=== PATIENT | female | born 1950 | race African-American/Black ===

== ENCOUNTER 2018-07-20 16:11 | Observation (INO) | payer BC, MEDICARE ==
[2018-07-20] MEDS ORDERED: NORMAL SALINE 1,000 ML IV ONE (16:57)
[2018-07-20 17:36] LABS: Hematocrit 30.9 % (37.0-47.0); Hemoglobin 9.9 gm/dL (12.5-16.0); Mean Cell Volume 94.5 fl (78-100); Mean Corpuscular Hemoglobin 30.3 pg (27-31); Mean Platelet Volume 9.7 fl (8-12.5); Neutrophil # 7.6 K/mm3 (1.3-6.0); Neutrophil % 86.9 % (42-75.0); Platelet Count 447 K/mm3 (150-450); Red Blood Count 3.27 M/mm3 (4.2-5.4); Red Cell Distribution Width 20.3 % (11.5-14.0); White Blood Count 8.8 K/mm3 (4.0-10.5)
[2018-07-20 18:00] LABS: Anion Gap 13.9 mmol/L (6.8-13.8); BUN/Creatinine Ratio 12.9 (9.0-21.6); Calcium * 8.8 mg/dL (7.9-10.9); Carbon Dioxide 24.3 mmol/L (24-32.6); Potassium 3.2 mmol/L (3.4-4.6)
[2018-07-20 18:02] LABS: Albumin * 2.7 gm/dl (3.4-5.0); Bilirubin, Total 0.5 mg/dL (0.0-1.1); Ca. Corrected For Albumin 9.5 mg/dL (8.4-10.2); Total Protein 6.7 gm/dL (6.2-8.2)
--- NOTE | 2018-07-20 18:44 | ERNOTE ---
Medical Problem HPI - Narrative Date of Service: 07/20/18 - General Chief Complaint: General Assessment Time Seen by Provider: 07/20/18 16:32 Source: patient, family Exam Limitations: no limitations - Immun/Allergies/Home Medications Immunizations: IMMUNIZATION HX Immunizations Up to Date Yes History of Influenza Vaccine Yes Hx Pneumococcal Vaccination No Allergies/Adverse Reactions: Allergies No Known Allergies Allergy (Verified 07/20/18 16:19) Home Medications: HOME MEDICATIONS Aspirin [Aspirin Enteric Coated] 81 mg PO DAILY 01/08/14 [Last Taken 01/08/14 09:00] Simvastatin 10 mg PO HS 01/08/14 [Last Taken 01/07/14 20:00] DULoxetine HCL [Cymbalta] 30 mg PO DAILY 05/30/18 [Last Taken Unknown] amitriptyline 10 mg tablet 10 mg PO HS 07/04/18 [Last Taken Unknown] atenolol 25 mg tablet 25 mg PO BID tab 07/04/18 [Last Taken Unknown] lisinopril 5 mg tablet 5 mg PO DAILY 07/04/18 [Last Taken Unknown] omeprazole 20 mg capsule,delayed release 20 mg PO DAILY 07/04/18 [Last Taken Unknown] hydrocodone 7.5 mg-acetaminophen 325 mg tablet 1 tab PO Q6H 07/20/18 [Last Taken Unknown] - History of Present History Narrative: patient presents from dr shanks office with c/o of weakness, recent hx of perforated bowel, perittonits and duodenal mass, was dismissed and has continued to decline, falliing frequently and profound weakness Timing: constant, getting worse Severity: moderate Modifying Factors - (Improves): Present: other - nothing Modifying Factors - (Worsens): Present: movement Review of Systems - Narrative Narrative: see chief complaint - Review of Systems Constitutional: Present: See HPI, weakness, fatigue, malaise EYE: Present: no symptoms reported ENT: Present: no symptoms reported Respiratory: Present: no symptoms reported Cardiology: Present: no symptoms reported Gastrointestinal/Abdominal: Present: See HPI, nausea Genitourinary: Present: no symptoms reported Musculoskeletal: Present: no symptoms reported Skin: Present: no symptoms reported Neurological: Present: no symptoms reported Endocrine: Present: no symptoms reported Hematologic/Lymphatic: Present: no symptoms reported Psych: Present: no symptoms reported All Other Systems: All systems neg except as marked Medical History (Last Reviewed 07/20/18 @ 16:58 by Marianna Elizalde RN) Pneumoperitoneum (Acute) Onset Date: ~05/30/[address] segment depression (Acute) Onset Date: ~05/30/18 Duodenal ulcer (Acute) Onset Date: ~05/30/18 Duodenal mass (Acute) Onset Date: ~05/30/18 Fatigue (Chronic) Onset Date: ~2012 Depressive disorder (Chronic) Onset Date: ~2015 Hyperlipemia (Chronic) Hypertension (Chronic) Lung cancer (Acute) DDD (degenerative disc disease) (Chronic) hx of radiation treatment Surgical History: Surgical History (Last Reviewed 07/20/18 @ 16:58 by Marianna Elizalde RN) S/P exploratory laparotomy (Acute) Onset Date: ~05/30/18 History of colonoscopy Onset Date: ~2010 1997 hyperplastic polyp. Fabianoely 2001. 2010 divertic ulosis repeat 5 years Hx of appendectomy Hx of heart artery stent Onset Date: ~2007 Hx of neck surgery Hx of tonsillectomy Onset Date: Unknown Hx of tubal ligation Onset Date: ~1988 Family History: Family History (Last Reviewed 07/20/18 @ 16:58 by Marianna Elizalde RN) Father Mother Social History: Preferred Language Guinean Smoking Status Never smoker Abuse History No History of abuse Psych History Hx of Depression Alcohol Use none Drug Use none (Last Updated 07/20/18 @ 17:02 by Sanjana Patel MD) No Social History Section defined Physical Exam - Physical Exam General Appearance: Present: mild distress, anxious, lethargic, cachetic, sleeping/easy to arouse Head Exam: Present: normal inspection, no evidence of injury Eye Exam: Normal inspection: bilateral, PERRL: bilateral, EOMI: bilateral Ears, Nose, Throat: Present: normal ENT inspection, normal pharynx Neck: Present: normal inspection, nontender Respiratory: Present: no respiratory distress, normal breath sounds, no accessory muscle use, chest nontender, lungs clear Cardiovascular/Chest: Present: regular rate, rhythm, no murmur, normal pe ripheral pulses Gastrointestinal/Abdominal: Present: normal bowel sounds, nontender, nondistended, soft, no organomegaly, other - healing surgical incision mid abdomen Back Exam: Present: normal inspection, normal range of motion, no CVA tenderness, no vertebral tenderness Extremity Exam: Present: normal inspection, non-tender, normal range of motion, no edema Neurological Exam: Present: alert, oriented, normal mood/affect, no motor/sensory deficits Skin Exam: Present: other - dehydration Lymphatic Exam: Present: no adenopathy ED Progress - Date and Time Seen: Date and Time: 07/20/18 19:02 patient unchanged, discussed labs and conditiion with family,family expressed wishes to move to hospice following hospital stay also expressedwishes for patient to be dnr, case discussed with dr manda adamson ccepts admission - Results and Orders Patient's Lab Results:: I have reviewed the patient's lab results. - Vital Signs Patient's Vital Signs:: I have reviewed the patient's vital signs. Vital Signs: Vital Signs 07/20/18 16:11 07/20/18 16:37 07/20/18 17:35 Temperature 36.4 C Pulse Rate 67 75 82 Respiratory Rate 14 13 19 Blood Pressure 122/63 126/69 O2 Sat by Pulse Oximetry 07/20/18 17:50 07/20/18 17:59 07/20/18 18:05 Temperature Pulse Rate 89 85 73 Respiratory Rate 18 15 Blood Pressure 119/82 134/77 O2 Sat by Pulse Oximetry 100 07/20/18 18:30 Temperature Pulse Rate 87 Respiratory Rate 16 Blood Pressure 121/77 O2 Sat by Pulse Oximetry 99 - EKG EKG: NSR - X-Ray X-Ray #1 X-Ray: chest - no acute process, abdomen nsbgp - Progress/Reassessment Chief Complaint: General Assessment Progress:: Unchanged - Transfer of Care Expected Disposition: Admit Plan - Plan Plan: to admit to observation Departure Clinical Impression: Dehydration, moderate, Anuria and oliguria - Departure Disposition: Still a patient Condition: Poor Referrals: Sanjana Patel MD [Primary Care Provider] -
[2018-07-20 19:13] LABS: Urine Bilirubin Negative (NEGATIVE); Urine Blood Negative /ul (NEGATIVE); Urine Ketone Negative (NEGATIVE); Urine Nitrite Negative (NEGATIVE); Urine Protein 15 mg/dL (NEGATIVE); Urine Specific Gravity 1.025 SP.GR. (1.005-1.010); Urine Urobilinogen Normal (NORMAL)
[2018-07-20] MEDS ORDERED: NORMAL SALINE 1,000 ML IV PRN (19:29)
[2018-07-20 19:49] LABS: Urine Appearance Clear (CLEAR); Urine Color Yellow
[2018-07-20 19:50] LABS: Urine Bacteria TRACE; Urine RBC 0-5 /hpf (0-5)
[2018-07-20] MEDS ORDERED: POTASSIUM CHLORIDE 20 MEQ TABLET.SA PO ONE (20:02)
[2018-07-20] MEDS ORDERED: ACETAMINOPHEN 500 MG TABLET PO PRN (20:05)
--- NOTE | 2018-07-20 20:30 | HP ---
Chief Complaint - Chief Complaint Date of Service: 07/20/18 Time of Service: 20:18 Chief Complaint: I cant eat or drink, I'm weak History of Present Illness: 68 AA female with PMHx of Perforated bowel, peritonitis, Duodenal cancer was brought to the ER by her son due to anorexia and inability to tolerate fluids for the past few days. Px is emaciated and cachetic from advanced GI cancer and has abdominal pain. She was found to be marked dehydrated in ER and has sissy oliguria due to fluid deficit. Px was started on IV hydration while in ER. Medical History (Last Reviewed 07/20/18 @ 16:58 by Marianna Elizalde RN) Pneumoperitoneum (Acute) Onset Date: ~05/30/[address] segment depression (Acute) Onset Date: ~05/30/18 Duodenal ulcer (Acute) Onset Date: ~05/30/18 Duodenal mass (Acute) Onset Date: ~05/30/18 Fatigue (Chronic) Onset Date: ~2012 Depressive disorder (Chronic) Onset Date: ~2015 Hyperlipemia (Chronic) Hypertension (Chronic) Lung cancer (Acute) DDD (degenerative disc disease) (Chronic) hx of radiation treatment Surgical History: Surgical History (Last Reviewed 07/20/18 @ 16:58 by Marianna Elizalde RN) S/P exploratory laparotomy (Acute) Onset Date: ~05/30/18 History of colonoscopy Onset Date: ~2010 1997 hyperplastic polyp. Fabianoely 2001. 2010 divertic ulosis repeat 5 years Hx of appendectomy Hx of heart artery stent Onset Date: ~2007 Hx of neck surgery Hx of tonsillectomy Onset Date: Unknown Hx of tubal ligation Onset Date: ~1988 Family History: Family History (Last Reviewed 07/20/18 @ 16:58 by Marianna Elizalde RN) Father Mother Social History: Preferred Language [place] Smoking Status Never smoker Abuse History No History of abuse Psych History Hx of Depression Alcohol Use none Drug Use none (Last Updated 07/20/18 @ 17:02 by Sanjana Patel MD) No Social History Section defined Peds Patient Hx - Developmental: No Pertinent Hx Peds Patient Hx - Medical: No Pertinent Hx Peds Patient Hx - Cardiac/Respiratory: No Pertinent Hx Peds Patient Hx - Surgical: No Surgical History Patient History - Cancer: Lung, Other - Duodenal cancer Review Of Systems (GEN) - Review of Systems Generalized/Overall Review: Present: Malaise, Weight loss EENTM: Present: No Symptoms Reported Respiratory: Present: No Symptoms Reported Abdominal: Present: Abdominal Pain Genitourinary: Present: Oliguria Musculoskeletal: Present: No Symptoms Reported Neurological: Present: Depressed, Emotional Problems Skin: Present: No Symptoms Reported Endocrine: Present: No Symptoms Reported Misc: All systems neg except as marked Immunizations: IMMUNIZATION HX Immunizations Up to Date Yes History of Influenza Vaccine Yes Hx Pneumococcal Vaccination No Allergies/Adverse Reactions: Allergies Allergy/AdvReac Type Severity Reaction Status Date / Time No Known Allergies Allergy Verified 07/20/18 16:19 Home Medications: HOME MEDICATIONS Aspirin [Aspirin Enteric Coated] 81 mg PO DAILY 01/08/14 [Last Taken 01/08/14 09:00] Simvastatin 10 mg PO HS 01/08/14 [Last Taken 01/07/14 20:00] DULoxetine HCL [Cymbalta] 30 mg PO DAILY 05/30/18 [Last Taken Unknown] amitriptyline 10 mg tablet 10 mg PO HS 07/04/18 [Last Taken Unknown] atenolol 25 mg tablet 25 mg PO BID tab 07/04/18 [Last Taken Unknown] hydrocodone 7.5 mg-acetaminophen 325 mg tablet 1 tab PO Q6H 07/20/18 [Last Taken Unknown] Exam - Exam Vital Signs: Vital Signs - Last Taken Temp 36.4 C 07/20/18 16:11 Pulse 86 07/20/18 19:00 Resp 16 07/20/18 19:00 BP 139/63 07/20/18 19:00 Pulse Ox 99 07/20/18 19:00 Constitutional: Present: Alert, Oriented x3, Cooperative, No distress, Elderly, Thin and frail ENT Exam: Present: normal ENT inspection, hearing grossly normal, pharynx normal, TMs normal Eye Exam: bilateral eye: normal inspection, PERRL, EOMI Neck: Present: non-tender, full range of motion, supple, normal inspection, trachea midline Back Exam: Present: normal inspection, no CVA tenderness, no vertebral tenderness Breasts: Present: Exam deferred Respiratory: Present: chest non-tender, lungs clear, normal breath sounds, no respiratory distress, no accessory muscle use Cardiovascular/Chest: Present: normal peripheral pulses, regular rate, rhythm, no chest tenderness, no edema, no gallop, no JVD, no murmur Peripheral Pulses: carotid (R): 3+, carotid (L): 3+, femoral (R): 3+, femoral (L): 3+, dorsalis-pedis (R): 3+, dorsalis-pedis (L): 3+, radial (R): 3+, radial (L): 3+ Abdomen: Present: hypoactive /Rectal: Present: Exam deferred Extremity: Present: normal range of motion, non-tender, normal inspection, no pedal edema, no calf tenderness, slow capillary refill Skin Exam: Present: normal color, warm/dry, no cyanosis Lymphatic: Present: no adenopathy Neurologic: Present: fitting room checker II-XII nml as tested, depressed affect Appearance: Present: appropriate insight, disheveled Eye contact: Present: cooperative, good eye contact, normal speech Thoughts: Present: normal thought pattern Diagnostic Studies: Abnormal Lab Results 07/20/18 07/20/18 07/20/18 Range/Units 17:30 17:30 17:59 RBC 3.27 L (4.2-5.4) M/mm3 Hgb 9.9 L (12.5-16.0) gm/dL Hct 30.9 L (37.0-47.0) % RDW 20.3 H (11.5-14.0) % Immature Gran % (Auto) 0.50 H (0.001-0.429) % Immature Gran # (Auto) 0.04 H (0.000-0.0310) K/mm3 Neutrophils % 86.9 H (42-75.0) % Lymphocytes % 9.1 L (20-51) % Neutrophils # 7.6 H (1.3-6.0) K/mm3 Lymphocytes # 0.80 L (1.5-3.5) k/mm3 Sodium 143 H (132-142) mmol/L Plasma Sodium 143 H (130-142) mmol/L Potassium 3.2 L (3.4-4.6) mmol/L Chloride 108 H (97-106) mmol/L Anion Gap 13.9 H (6.8-13.8) mmol/L Creatinine 1.55 H (0.4-1.4) mg/dL Est GFR (Non-Af Amer) 43 L (60-130) mL/min Random Glucose 117 H D (70-110) mg/dL Alkaline Phosphatase 206 H (50-170) U/L Albumin 2.7 L (3.4-5.0) gm/dl Urine Protein (NEGATIVE) mg/dL Urine WBC (0-5) /hpf Stool Occult Blood Positive H 07/20/18 Range/Units 19:00 RBC (4.2-5.4) M/mm3 Hgb (12.5-16.0) gm/dL Hct (37.0-47.0) % RDW (11.5-14.0) % Immature Gran % (Auto) (0.001-0.429) % Immature Gran # (Auto) (0.000-0.0310) K/mm3 Neutrophils % (42-75.0) % Lymphocytes % (20-51) % Neutrophils # (1.3-6.0) K/mm3 Lymphocytes # (1.5-3.5) k/mm3 Sodium (132-142) mmol/L Plasma Sodium (130-142) mmol/L Potassium (3.4-4.6) mmol/L Chloride (97-106) mmol/L Anion Gap (6.8-13.8) mmol/L Creatinine (0.4-1.4) mg/dL Est GFR (Non-Af Amer) (60-130) mL/min Random Glucose (70-110) mg/dL Alkaline Phosphatase (50-170) U/L Albumin (3.4-5.0) gm/dl Urine Protein 15 H (NEGATIVE) mg/dL Urine WBC 5-10 H (0-5) /hpf Stool Occult Blood Laboratory Results WBC 8.8 K/mm3 (4.0-10.5) 07/20/18 17:30 RBC 3.27 M/mm3 (4.2-5.4) L 07/20/18 17:30 Hgb 9.9 gm/dL (12.5-16.0) L 07/20/18 17:30 Hct 30.9 % (37.0-47.0) L 07/20/18 17:30 MCV 94.5 fl (78-100) 07/20/18 17:30 MCH 30.3 pg (27-31) 07/20/18 17:30 MCHC 32.0 g/dl (32-36) 07/20/18 17:30 RDW 20.3 % (11.5-14.0) H 07/20/18 17:30 Plt Count 447 K/mm3 (150-450) 07/20/18 17:30 MPV 9.7 fl (8-12.5) 07/20/18 17:30 Immature Gran % (Auto) 0.50 % (0.001-0.429) H 07/20/18 17:30 Immature Gran # (Auto) 0.04 K/mm3 (0.000-0.0310) H 07/20/18 17:30 Neutrophils % 86.9 % (42-75.0) H 07/20/18 17:30 Lymphocytes % 9.1 % (20-51) L 07/20/18 17:30 Monocytes % 3.2 % (0.0-9) 07/20/18 17:30 Eosinophils % 0.2 % (0.0-3.0) 07/20/18 17: Basophils % 0.1 % (0.0-1.0) 07/20/18 17:30 Nucleated RBC % 0.0 k/mm3 (0-1) 07/20/18 17:30 Neutrophils # 7.6 K/mm3 (1.3-6.0) H 07/20/18 17:30 Lymphocytes # 0.80 k/mm3 (1.5-3.5) L 07/20/18 17:30 Monocytes # 0.3 k/mm3 (0.0-1.0) 07/20/18 17:30 Eosinophils # 0.0 k/mm3 (0.0-0.7) 07/20/18 17:30 Absolute Basophils 0.0 k/mm3 (0.0-0.1) 07/20/18 17:30 Sodium 143 mmol/L (132-142) H 07/20/18 17:30 Plasma Sodium 143 mmol/L (130-142) H 07/20/18 17:30 Potassium 3.2 mmol/L (3.4-4.6) L 07/20/18 17:30 Chloride 108 mmol/L (97-106) H 07/20/18 17:30 Carbon Dioxide 24.3 mmol/L (24-32.6) 07/20/18 17:30 Anion Gap 13.9 mmol/L (6.8-13.8) H 07/20/18 17:30 BUN 20 mg/dL (3-23) 07/20/18 17:30 Creatinine 1.55 mg/dL (0.4-1.4) H 07/20/18 17:30 Est GFR (Non-Af Amer) 43 mL/min (60-130) L 07/20/18 17:30 BUN/Creatinine Ratio 12.9 (9.0-21.6) 07/20/18 17:30 Random Glucose 117 mg/dL (70-110) H D 07/20/18 17:30 Calcium 8.8 mg/dL (7.9-10.9) 07/20/18 17:30 Calcium Adj for Albumin 9.5 mg/dL (8.4-10.2) 07/20/18 17:30 Total Bilirubin 0.5 mg/dL (0.0-1.1) 07/20/18 17:30 AST 30 U/L (0-48) 07/20/18 17:30 ALT 26 U/L (19-67) 07/20/18 17:30 Alkaline Phosphatase 206 U/L (50-170) H 07/20/18 17:30 Total Protein 6.7 gm/dL (6.2-8.2) 07/20/18 17:30 Albumin 2.7 gm/dl (3.4-5.0) L 07/20/18 17:30 Amylase 78 U/L (25-115) 07/20/18 17:30 Lipase 238 U/L (73-393) 07/20/18 17:30 Urine Color Yellow 07/20/18 19:00 Urine Appearance Clear (CLEAR) 07/20/18 19:00 Urine pH 6.0 pH (5.0-7.0) 07/20/18 19:00 Ur Specific [place] 1.025 SP.GR. (1.005-1.010) 07/20/18 19:00 Urine Protein 15 mg/dL (NEGATIVE) H 07/20/18 19:00 Urine Glucose (UA) Negative mg/dL (NEGATIVE) 07/20/18 19:00 Urine Ketones Negative mg/dL (NEGATIVE) 07/20/18 19:00 Urine Blood Negative /ul (NEGATIVE) 07/20/18 19:00 Urine Nitrate Negative (NEGATIVE) 07/20/18 19:00 Urine Bilirubin Negative mg/dl (NEGATIVE) 07/20/18 19:00 Prot Sulfosalicylic Acd QNS 07/20/18 19:00 Urine Urobilinogen Normal EU/dl (NORMAL) 07/20/18 19:00 Ur Leukocyte Esterase Negative /ul (NEGATIVE) 07/20/18 19:00 Urine RBC 0-5 /hpf (0-5) 07/20/18 19:00 Urine WBC 5-10 /hpf (0-5) H 07/20/18 19:00 Ur Epithelial Cells 0-5 /hpf (0-5) 07/20/18 19:00 Urine Bacteria Trace (NONE) 07/20/18 19:00 Urine Culture Comments Culture to follow 07/20/18 19:00 Stool Occult Blood Positive H 07/20/18 17:59 Assessment/Plan - Narrative Narrative: Plan was admitted to outpx observation for IV hydration and diuresis monitoring. Hospice care was discussed with her son and DNR status was establised per px's wishes. 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
[2018-07-20] MEDS ORDERED: AMITRIPTYLINE HCL 10 MG TABLET PO SCH (21:00)
[2018-07-20] MEDS ORDERED: SIMVASTATIN 10 MG TABLET PO SCH (21:00)
[2018-07-20] MEDS ORDERED: HYDROcodone/ACETAMINOPHEN 1 EACH TABLET PO PRN ×2 (22:43→23:15)
[2018-07-20] MEDS ORDERED: ATENOLOL 50 MG TABLET ONE (23:38)
[2018-07-20] MEDS ORDERED: POTASSIUM CHLORIDE 10 MEQ TABLET.SA ONE (23:39)
[2018-07-20] MEDS: ATENOLOL 25 MG TABLET PO SCH (23:50)
[2018-07-21 06:20] LABS: Hematocrit 25.4 % (37.0-47.0); Mean Cell Volume 96.2 fl (78-100); Mean Corpuscular Hemoglobin 29.9 pg (27-31); Mean Corpuscular Hgb Conc 31.1 g/dl (32-36); Mean Platelet Volume 9.8 fl (8-12.5); Neutrophil # 6.4 K/mm3 (1.3-6.0); Neutrophil % 78.7 % (42-75.0); Platelet Count 366 K/mm3 (150-450); Red Blood Count 2.64 M/mm3 (4.2-5.4); Red Cell Distribution Width 20.4 % (11.5-14.0); White Blood Count 8.1 K/mm3 (4.0-10.5)
[2018-07-21 06:58] LABS: Hemoglobin 7.9 gm/dL (12.5-16.0)
[2018-07-21 08:32] LABS: Albumin * 2.2 gm/dl (3.4-5.0); Anion Gap 14.2 mmol/L (6.8-13.8); BUN/Creatinine Ratio 13.1 (9.0-21.6); Bilirubin, Total 0.3 mg/dL (0.0-1.1); Ca. Corrected For Albumin 8.9 mg/dL (8.4-10.2); Calcium * 7.8 mg/dL (7.9-10.9); Potassium 3.2 mmol/L (3.4-4.6); Total Protein 5.8 gm/dL (6.2-8.2)
[2018-07-21] MEDS ORDERED: LISINOPRIL 5 MG TABLET PO SCH (09:00)
[2018-07-21] MEDS ORDERED: PANTOPRAZOLE SODIUM 20 MG TABLET.DR PO SCH (09:00)
[2018-07-21] MEDS ORDERED: DULoxetine HCL 30 MG CAPSULE.SA PO SCH (09:00)
[2018-07-21] MEDS ORDERED: ASPIRIN 81 MG TABLET.DR PO SCH (09:00)
[2018-07-21] MEDS: ATENOLOL 25 MG TABLET PO SCH (09:38)
[2018-07-21] MEDS ORDERED: POTASSIUM CHLORIDE 20 MEQ TABLET.SA PO ONE (13:48)
--- NOTE | 2018-07-21 14:10 | DS ---
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 She arrived extremely weak, lethargic, and oliguric. IV hydration was started in ER and patient was admitted to outpatient observation for continued IV hydration. Kiera's family was informed of her poor prognosis and they agreed to hospice services in her home. Kiera was evaluated at beside this morning and was found to be more alert and awake, and she reported feeling stronger. With encouragement from her sister, she ate some pudding and drank some juice. Hospice care at home was agreed upon and is being arranged by case management. Procedures Performed: none Results and Findings: Pending Mircobiology Results 07/20/18 19:00 Urine,Voided Urine Culture - Preliminary No Growth Lab Pending Results 07/20/18 17:30: WBC 8.8, RBC 3.27 L, Hgb 9.9 L, Hct 30.9 L, MCV 94.5, MCH 30.3, MCHC 32.0, RDW 20.3 H, Plt Count 447, MPV 9.7, Immature Gran % (Auto) 0.50 H, Immature Gran # (Auto) 0.04 H, Neutrophils % 86.9 H, Lymphocytes % 9.1 L, Monocytes % 3.2, Eosinophils % 0.2, Basophils % 0.1, Nucleated RBC % 0.0, Neutrophils # 7.6 H, Lymphocytes # 0.80 L, Monocytes # 0.3, Eosinophils # 0.0, Absolute Basophils 0.0 07/20/18 17:30: Sodium 143 H, Plasma Sodium 143 H, Potassium 3.2 L, Chloride 108 H, Carbon Dioxide 24.3, Anion Gap 13.9 H, BUN 20, Creatinine 1.55 H, Est GFR (Non-Af Amer) 43 L, BUN/Creatinine Ratio 12.9, Random Glucose 117 H D, Calcium 8.8, Calcium Adj for Albumin 9.5, Total Bilirubin 0.5, AST 30, ALT 26, Alkaline Phosphatase 206 H, Total Protein 6.7, Albumin 2.7 L, Amylase 78, Lipase 238 07/20/18 17:59: Stool Occult Blood Positive H 07/20/18 19:00: Urine Color Yellow, Urine Appearance Clear, Urine pH 6.0, Ur Specific [place] 1.025, Urine Protein 15 H, Urine Glucose (UA) Negative, Urine Ketones Negative, Urine Blood Negative, Urine Nitrate Negative, Urine Bilirubin Negative, Prot Sulfosalicylic Acd QNS, Urine Urobilinogen Normal, Ur Leukocyte Esterase Negative, Urine RBC 0-5, Urine WBC 5-10 H, Ur Epithelial Cells 0-5, Urine Bacteria Trace, Urine Culture Comments Culture to follow 07/21/18 06:00: WBC 8.1, RBC 2.64 L, Hgb 7.9 L* D, Hct 25.4 L, MCV 96.2, MCH 29.9, MCHC 31.1 L, RDW 20.4 H, Plt Count 366, MPV 9.8, Immature Gran % (Auto) 0.40, Immature Gran # (Auto) 0.03, Neutrophils % 78.7 H, Lymphocytes % 14.2 L, Monocytes % 5.9, Eosinophils % 0.7, Basophils % 0.1, Nucleated RBC % 0.0, Neutrophils # 6.4 H, Lymphocytes # 1.15 L, Monocytes # 0.5, Eosinophils # 0.1, Absolute Basophils 0.0 07/21/18 06:00: Sodium 144 H, Plasma Sodium 144 H, Potassium 3.2 L, Chloride 113 H, Carbon Dioxide 20.0 L, Anion Gap 14.2 H, BUN 18, Creatinine 1.37, Est GFR (Non-Af Amer) 49 L, BUN/Creatinine Ratio 13.1, Random Glucose 95, Calcium 7.8 L, Calcium Adj for Albumin 8.9, Total Bilirubin 0.3, AST 27, ALT 21, Alkaline Phosphatase 172 H, Total Protein 5.8 L, Albumin 2.2 L Discharge Location: Home Disposition: Home self-care Condition: Poor Face to Face Encounter completed per [facility] Guidelines: No Discharge Activity: Activity as tolerated Discharge Diet: General/regular food Referrals: Sanjana Patel MD [Primary Care Provider] - Complete Home Medications List: Complete Home Medication List: Aspirin [Aspirin Enteric Coated] 81 mg PO QAM 01/08/14 Simvastatin 10 mg PO 01/08/14 DULoxetine HCL [Cymbalta] 30 mg PO QAM 05/30/18 amitriptyline 10 mg tablet 10 mg PO HS 07/04/18 atenolol 25 mg tablet 25 mg PO BID tab 07/04/18 hydrocodone 7.5 mg-acetaminophen 325 mg tablet 1 tab PO Q6H 07/20/18 Acetaminophen [Tylenol] 1,000 mg PO Q6H PRN tablet 07/21/18 Amitriptyline HCl [Elavil] 10 mg PO HS tablet 07/21/18 Lisinopril [Zestril] 5 mg PO DAILY tablet 07/21/18
[2018-07-21 19:36] VITALS: BP 157/97
== END 2018-07-21 18:55 | disposition home or self-care (01) ==
LOC: ER 16:11 → MS 16:11
PROVIDERS: ADMIT Family Medicine; ATTEND Family Medicine
DX: R34 Anuria and oliguria; Z23 Encounter for immunization; Z51.5 Encounter for palliative care; I10 Essential (primary) hypertension; E86.0 Dehydration; E78.5 Hyperlipidemia, unspecified; R53.1 Weakness; D64.9 Anemia, unspecified; C17.0 Malignant neoplasm of duodenum
CPT/HCPCS: 36415; 71010; 71045; 74019; 74020; 80053; 81001; 82150; 82272; 83690; 85025; 87086; 90686; 93005; 96360; 96361; 99285; G0008; G0378